=== PATIENT | female | born 1975 | race Caucasian/White ===

== ENCOUNTER 2022-08-26 01:25 | Emergency (ER) | payer MEDICAID ==
[~2022-08-26] VITALS: Ht 160 cm; Wt 76.7 kg
[2022-08-26 01:48] VITALS: BP 122/93; PULSE 97; RESP 14; TEMP 98.3; O2SAT 100
--- NOTE | 2022-08-26 01:51 | NUR ---
PT TO THE BATHROOM FOR URINE COLLECTION
[2022-08-26 02:35] LABS: BILIRUBIN,URINE NEGATIVE (NEGATIVE); BLOOD, URINE 3+ (NEGATIVE); LEUKOCYTE ESTERASE ,URINE TRACE (NEGATIVE); NITRITE, URINE NEGATIVE (NEGATIVE); PH,URINE 6.5 (5.0-9.0); UGLUCOSE NEGATIVE (NEGATIVE)
[2022-08-26 03:02] LABS: COLOR,URINE RED (YELLOW)
[2022-08-26 03:03] LABS: RBC,URINE TOO NUMEROUS TO COUN /HPF (0-5)
[2022-08-26 03:05] LABS: APPEARANCE,URINE HAZY (CLEAR)
--- NOTE | 2022-08-26 04:10 | NUR ---
pt to [facility] ambulatory with a steady gait.
[2022-08-26] MEDS ORDERED: cefTRIAXone 1,000 MG in LIDOCAINE MPF 1% 2.1 ML IM ONE (04:45)
[2022-08-26] MEDS ORDERED: HYDROcodone/APAP 5/325 MG 1 TAB TAB PO ONE (04:45)
[2022-08-26] MEDS ORDERED: PHENAZOPYRIDINE 100 MG TAB PO ONE (04:45)
[2022-08-26] MEDS ORDERED: NAPR-54 PO (04:59)
[2022-08-26] MEDS ORDERED: CEPH-588 PO (04:59)
[2022-08-26] MEDS ORDERED: PYR100 PO (04:59)
[2022-08-26] MEDS ORDERED: cefTRIAXone 1,000 MG VIAL ONE (05:15)
[2022-08-26] MEDS ORDERED: LIDOCAINE MPF 1% 5 ML ONE (05:16)
--- NOTE | 2022-08-26 05:40 | NUR ---
Patient discharged with v/s stable. Written and verbal after care instructions given and explained. Patient alert, oriented and verbalized understanding of instructions. Ambulatory with steady gait. All questions addressed prior to discharge. ID band removed. Patient advised to follow up with PMD. Rx of keflex, naproxen, pyridium given. Opportunity to ask questions provided and answered.
== END 2022-08-26 05:40 | disposition home or self-care (01) ==
LOC: MED 01:25
DX: N39.0 Urinary tract infection, site not specified (principal); Z79.899 Other long term (current) drug therapy; Z98.890 Other specified postprocedural states
CPT/HCPCS: 81001; 81025; 87086; 96372; 99283; J0696; J2001